=== PATIENT | female | born 1995 | race Caucasian/White ===

== ENCOUNTER → 2017-12-17 | Outpatient (CLI) | payer OTHER | END | disposition home or self-care (01) | LOC: GMAM 12:33 | PROVIDERS: ATTEND Family Medicine | DX: M06.9 Rheumatoid arthritis, unspecified (principal) ==

== ENCOUNTER → 2018-02-23 | Outpatient (CLI) | payer BC | LOC: GMAJS 11:48 | PROVIDERS: ATTEND Physician Assistant | DX: M79.644 Pain in right finger(s) (principal) ==

== ENCOUNTER → 2018-02-24 | Outpatient (CLI) | payer BC ==
--- NOTE | 2018-02-24 17:15 | US ---
EXAM DESCRIPTION: Venous,Upper Extremity RT CLINICAL HISTORY: PAIN IN RIGHT FINGER COMPARISON: None Available. TECHNIQUE: Right upper extremity venous duplex FINDINGS: There is no DVT identified. There is normal color flow observed with good flow augmentation. All deep veins compress normally. IMPRESSION: Negative for DVT Electronically signed by: Salvador West MD 02/24/2018 5:13 PM CDT
--- NOTE | 2018-02-24 17:15 | US ---
EXAM DESCRIPTION: Extremity,Upper RT Arteries CLINICAL HISTORY: PAIN IN RIGHT FINGER COMPARISON: None. TECHNIQUE: 2-D color flow and Doppler sonography FINDINGS: No significant atherosclerotic disease is observed. There is no evidence of an occlusion. Triphasic flow is observed throughout. Right subclavian artery: 145 cm/s Right axillary artery: 76 cm/s Right brachial artery: 93 cm/s Right radial artery: 47 cm/s line right ulnar artery: 36 cm/s IMPRESSION: Normal right arm arterial sonography Electronically signed by: Salvador West MD 02/24/2018 5:12 PM CDT
== END ==
LOC: US 10:39
PROVIDERS: ATTEND Physician Assistant
DX: M79.644 Pain in right finger(s) (principal)

== ENCOUNTER → 2018-02-28 | Outpatient (CLI) | payer BC | LOC: GMAM 18:01 | PROVIDERS: ATTEND Family Medicine | DX: R53.83 Other fatigue (principal) ==

== ENCOUNTER → 2018-06-30 | Outpatient (CLI) | payer SELFPAY | LOC: GMAM 10:58 | PROVIDERS: ATTEND Family Medicine | DX: M06.9 Rheumatoid arthritis, unspecified (principal) ==

== ENCOUNTER → 2018-12-30 | Outpatient (CLI) | payer BC | LOC: GMAM 11:21 | PROVIDERS: ATTEND Family Medicine | DX: M06.9 Rheumatoid arthritis, unspecified (principal) ==

== ENCOUNTER → 2019-06-09 | Outpatient (CLI) | payer BC | LOC: GMAM 13:05 | PROVIDERS: ATTEND Family Medicine | DX: M06.9 Rheumatoid arthritis, unspecified (principal) ==

== ENCOUNTER → 2020-06-17 | Outpatient (CLI) | payer BC | LOC: GMAM 14:23 | PROVIDERS: ATTEND Family Medicine | DX: L40.52 Psoriatic arthritis mutilans (principal) ==

== ENCOUNTER → 2020-12-30 | Outpatient (CLI) | payer BC | LOC: GMAM 14:18 | PROVIDERS: ATTEND Family Medicine | DX: M06.9 Rheumatoid arthritis, unspecified (principal) ==